=== PATIENT | female | born 1965 | race Caucasian/White ===

== ENCOUNTER 2016-12-22 18:46 | Emergency (ER) | payer OTHER ==
[2016-12-22] MEDS ORDERED: PRINIVIL5 M1 PO (20:37)
[2016-12-22] MEDS ORDERED: HYDROCHLOROTH12.5 M3 PO (20:38)
[2016-12-22] MEDS ORDERED: VITAMIN D5000 UNI2 PO (20:39)
== END 2016-12-22 22:00 ==
LOC: EDMED 18:46
DX: S06.0X0A Concussion without loss of consciousness, initial encounter (principal); G95.20 Unspecified cord compression; I10 Essential (primary) hypertension; Z79.899 Other long term (current) drug therapy; Z98.890 Other specified postprocedural states; V49.50XA Passenger injured in collision with unspecified motor vehicles in traffic accident, initial encounter; Y92.410 Unspecified street and highway as the place of occurrence of the external cause